=== PATIENT | male | born 1975 | race Two or more races ===

== ENCOUNTER 2025-02-15 11:03 | Inpatient (IN) | payer MEDICAID, OTHER ==
[~2025-02-15] VITALS: Ht 157.5 cm; Wt 104.5 kg
--- NOTE | 2025-02-15 11:41 | ED.PDOC ---
GI ASSESSMENT HPI Comments 49y M who presents to the ED for chief complaint of abdominal pain. Pt states he has been having LLQ abdominal pain for the past 2 hours. Pt states he drank water earlier this AM and states he had 1x vomiting episode and states he started to have burning like LLQ abdominal pain. Pt states the pain is constant, non-radiating, with no noted exacerbating or relieving factors. Pt otherwise denies any changes to diet or sick contacts. Pt denies any other symptoms at this time. Time Seen by MD: 11:37 Primary Care Provider: UNKNOWN Reviewed Notes: Medications, Allergies Allergies: Coded Allergies: NO KNOWN ALLERGIES (Unverified , 02/15/25) Information Source: Patient Mode of Arrival: Ambulatory Brought in by: self Past Medical History PAST MEDICAL HISTORY: Denies Surgical History: Denies all surgeries Family History Family History: Reviewed,noncontributory to illness Social History Smoker: Non-Smoker Alcohol: Occasionally Drugs: Denies Drug Use Lives In: Home Constitutional: denies: chills, diaphoresis, fatigue, fever, malaise, sweats, weakness, others EENTM: denies: blurred vision, double vision, ear bleeding, ear discharge, ear drainage, ear pain, ear ringing, eye pain, eye redness, hearing loss, mouth pain, mouth swelling, nasal discharge, nose bleeding, nose congestion, nose pain, photophobia, tearing, throat pain, throat swelling, voice changes, others Respiratory: denies: cough, hemoptysis, orthopnea, SOB at rest, shortness of breath, SOB with excertion, stridor, wheezing, others Cardiovascular: denies: chest pain, dizzy spells, diaphoresis, Dyspnea on exertion, edema, irregular heart beat, left arm pain, lightheadedness, palpitations, PND, syncope, others Gastrointestinal: reports: abdominal pain, nausea, vomiting; denies: abdomen distended, blood streaked bowels, constipated, diarrhea, dysphagia, difficulty swallowing, hematemesis, melena, poor appetite, poor fluid intake, rectal bleeding, rectal pain, others Genitourinary: denies: burning, dysuria, flank pain, frequency, hematuria, incontinence, penile discharge, penile sore, pain, testicle pain, testicle swelling, urgency, others Neurological: denies: dizziness, fainting, headache, left sided numbness, left sided weakness, numbness, paresthesia, pre-existing deficit, right sided numbness, right sided weakness, seizure, speech problems, tingling, tremors, weakness, others Musculoskeletal: denies: back pain, gout, joint pain, joint swelling, muscle pain, muscle stiffness, neck pain, others Integumetry: denies: bruises, change in color, change in hair/nails, dryness, laceration, lesions, lumps, rash, wounds, others Allergic/Immunocompromised: denies: Difficulty Healing, Frequent Infections, Hives, Itching, others Hematologic/Lymphatic: denies: anemia, blood clots, easy bleeding, easy bruising, swollen glands, others Endocrine: denies: excessive hunger, excessive sweating, excessive thirst, excessive urination, flushing, intolerance to cold, intolerance to heat, unex plained weight gain, unexplained weight loss, others Psychiatric: denies: anxiety, bipolar disorder, depression, hopeless, panic disorder, schizophrenia, sleepless, suicidal, others All Other Systems: Reviewed and Negative Physical Exam General Appearance: Moderate Distress, Normal HEENT: Normal ENT Inspection, Pharynx Normal, TMs Normal Neck: Full Range of Motion, Non-Tender, Normal, Normal Inspection Respiratory: Chest Non-Tender, Lungs Clear, No Accessory Muscle Use, No Respiratory Distress, Normal Breath Sounds Cardiovascular: No Edema, No JVD, No Murmur, No Gallop, Normal Peripheral Pulses, Regular Rate/Rhythm Breast Exam: Deferred Gastrointestinal: LLQ (tender to palpation) Genitalia: Deferred Pelvic: Deferred Rectal: Deferred Extremities: No calf tenderness, Normal capillary refill, Normal inspection, Normal range of motion, Non-tender, No pedal edema Musculoskeletal : Apperance: Normal Neurologic: Alert, 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 Was a procedure done?: No GI differential Dx Differential Diagnosis: Constipation, Diverticular disease, Esophagitis, Gastritis/PUD, Gastroenteritis, Pancreatitis, Dehydration, Food Poisoning, Bacterial, Viral, Stress Ulcer, Kidney Stone X-Ray, Labs, Meds, VS Vital Signs Date Time Temp Pulse Resp B/P (MAP) Pulse Ox O2 Delivery O2 Flow Rate FiO2 02/15/25 12:42 98.4 106 16 105/77 (86) 94 98.4 02/15/25 12:42 57 17 98 Room Air 02/15/25 11:12 97.5 46 16 119/72 (88) 99 97.5 Lab Test 02/15/25 12:05 Range/Units White Blood Count 10.6 4.4-10.8 10^3/uL Red Blood Count 5.09 4.5-5.90 10^6/uL Hemoglobin 15.7 13.5-17.5 g/dL Hematocrit 45.6 41.0-53.0 % Mean Corpuscular Volume 89.5 80.0-100.0 fL Mean Corpuscular Hemoglobin 30.9 28.0-32.0 pg Mean Corpuscular Hemoglobin Concent 34.6 32.0-36.0 g/dL Red Cell Distribution Width 12.7 11.8-14.3 % Platelet Count 298 140-450 10^3/uL Mean Platelet Volume 8.1 6.9-10.8 fL Neutrophils (%) (Auto) 88.2 H 37.0-80.0 % Lymphocytes (%) (Auto) 7.9 L 10.0-50.0 % Monocytes (%) (Auto) 3.8 0.0-12.0 % Eosinophils (%) (Auto) 0.0 0.0-7.0 % Basophils (%) (Auto) 0.1 0.0-2.0 % Neutrophils # (Auto) 9.3 H 1.6-8.6 10 ^3/uL Lymphocytes # (Auto) 0.8 0.4-5.4 10 ^3/uL Monocytes # (Auto) 0.4 0-1.3 10 ^3/uL Eosinophils # (Auto) 0 0-0.8 10 ^3/uL Basophils # (Auto) 0 0-0.2 10 ^3/uL Nucleated Red Blood Cells 0.0 % Sodium Level 141 136-145 mmol/L Potassium Level 3.8 3.5-5.1 mmol/L Chloride Level 111 H 98-107 mmol/L Carbon Dioxide Level 19 L 20-31 mmol/L Anion Gap 11 5-15 Blood Urea Nitrogen 21 9-23 mg/dL Creatinine 1.68 H 0.700-1.30 mg/dL Glomerular Filtration Rate Calc 49 >90 mL/min BUN/Creatinine Ratio 12.5 10.0-20.0 Serum Glucose 110 H 74-106 mg/dL Calcium Level 10.2 8.7-10.4 mg/dL Patient alert. Continues to have abdominal pain. Vitals stable. Saturation pristine on room air. Continues to have abdominal pain. Kidney function elevated. Possible dehydration. Establish intravenous access. Was given fluids. Was given morphine. Was given Zofran. Possible kidney stone. Explained to the patient. Continue to monitor. Time of 1ST Reevaluation: 12:05 Reevaluation 1ST: Unchanged Patient Education/Counseling: Diagnosis, Treatment Family Education/Counseling: No Family Present SEPSIS Sepsis Screen Date sepsis recognized/suspect: Feb 15, 2025 Time Sepsis recognized/suspect: 1111 Recent Procedure: No On Antibiotic Therapy: No Respiratory Rate >20: No Heart Rate >90: No Temp<36 C (96.8 F) or >38.3 C: No SBP <90 or MAP <65 mmHG: No New Acute Mental Status Change: No Is the patient on CPAP, BIPAP,: No Physician Orders Urinalysis (02/15/25 11:49) Ct Ab Pel Wo Con-No Oral Or Iv (02/15/25 13:29) Vital Signs Date Time Temp Pulse Resp B/P (MAP) Pulse Ox O2 Delivery O2 Flow Rate FiO2 02/15/25 12:42 98.4 106 16 105/77 (86) 94 98.4 02/15/25 12:42 57 17 98 Room Air 02/15/25 11:12 97.5 46 16 119/72 (88) 99 97.5 Laboratory Tests Test 02/15/25 12:05 White Blood Count 10.6 10^3/uL (4.4-10.8) Departure 1 Departure Time of Disposition: 13:42 Impression: Primary Impression: Acute abdominal pain Disposition: ADMITTED INPATIENT Admit to: Med Surg Condition: Guarded Critical Care Note Critical Care Time?: No Stability Stability form required: No Heart Score Heart Score: Heart Score Response (Comments) Value History N/A 0 EKG N/A 0 Age N/A 0 Risk Factors N/A 0 Troponin N/A 0 Total 0 I personally scribed for MARCELA EDWARDS MD ([email or web address]) on 02/15/25 at 11:41. Electronically submitted by Darshana Brothers ([email or web address]). MARCELA EDWARDS MD Feb 15, 2025 11:41
[2025-02-15 12:25] LABS: Hematocrit 45.6 % (41.0-53.0); Hemoglobin 15.7 g/dL (13.5-17.5); Mean Corpuscular Hemoglobin 30.9 pg (28.0-32.0); Mean Corpuscular Volume 89.5 fL (80.0-100.0); Nucleated Red Blood Cells % 0.0 %
[2025-02-15 12:38] LABS: Potassium 3.8 mmol/L (3.5-5.1); Sodium 141 mmol/L (136-145)
[2025-02-15 12:39] LABS: Anion Gap 11 (5-15); Calcium 10.2 mg/dL (8.7-10.4)
[2025-02-15 12:41] LABS: Chloride 111 mmol/L (98-107)
[2025-02-15 12:42] LABS: Carbon Dioxide 19 mmol/L (20-31)
[2025-02-15 12:44] LABS: Glucose 110 mg/dL (74-106)
[2025-02-15 13:03] LABS: BUN/Creatinine Ratio 12.5 (10.0-20.0); Blood Urea Nitrogen 21 mg/dL (9-23)
--- NOTE | 2025-02-15 14:36 | DVH ---
CT CT AB PEL WO CON-NO ORAL OR IV INDICATION: colitis EXAM DATE: 02/15/2025 02:01 PM COMPARISON: None RADIATION DOSE: CTDIvol: 20.5 mGy, DLP: 1289.07 mGy*cm PROCEDURE: Helical CT images were obtained of the abdomen and pelvis without IV contrast Sagittal and coronal reconstructions are provided. ORAL CONTRAST: None. ADDITIONAL IMAGES / REFORMATS: None All C T scans at this medical facility are performed using dose modulation techniques as appropriate to a p erformed exam including the following: Automated exposure control was utilized; adjustment of the MA and/or KV according to patient size; and use of iterative reconstruction technique. FINDINGS: LUNG BASE: Normal. LIVER: Normal. GALLBLADDER AND BILIARY TREE: Mild pericholecystic fat stranding, nonspecific. No intra- or extrahepa tic biliary ductal dilation. PANCREAS: Normal. SPLEEN: Normal. BOWEL: Normal. Appendix appears normal. ADRENALS: Normal. KIDNEYS AND URETER: There is a 6mm distal left ureteral kidney stone with [id number] left hydro ureteronephrosis and perinephric fat stranding. BLADDER: Normal. REPRODUCTIVE ORGANS: Normal. LYMPH NODES:No lymphadenopathy. PERITONEUM: No ascites or free air. No other fluid collection. VESSELS: Scattered atherosclerotic calcifications are noted. RETROPERITONEUM: Normal. ABDOMINAL WALL: Normal. BONES: Scattered osseous degenerative changes are noted. IMPRESSION: 6mm distal left ureteral kidney stone with [id number] left hydroureteronephrosis and perinephri c fat stranding.
[2025-02-15 15:50] LABS: Urine Protein, UAD TRACE (Negative)
[2025-02-15] MEDS ORDERED: ONDANSETRON HCL 4 MG/2 ML VIAL IV PRN (16:15)
[2025-02-15] MEDS ORDERED: TOPI50TA53 PO (16:17)
--- NOTE | 2025-02-15 16:32 | DVHHP2 ---
History of Present Illness Reason for Visit: Abdominal pain History of Present Illness 49-year-old male presents to the emergency department with complaints of abdominal pain. He reports acute onset of left lower quadrant abdominal pain radiating to the left flank, beginning early this morning. The pain is sharp and persistent and is associated with nausea and vomiting. The patient has a history of nephrolithiasis several years ago. In the ED, a CT scan of abdomen and pelvis revealed a 6 mm left ureteral stone with mild to moderate left sided hydronephrosis and associated periphrenic fat stranding, consistent with obstructive uropathy. He also has a history of seizures and is currently taking topiramate. Past Medical History As stated in HPI Past Surgical History Denies Family History Reviewed, non-contributory to the management of this case. Past Social History The patient lives at home, denies smoking, alcohol or illicit drugs abuse. Review of Systems Constitutional: No: Fever, Chills, Sweats, Weakness, Malaise, Other Eyes: No: Pain, Vision change, Conjunctivae inflammation, Eyelid inflammation, Other, Redness ENT: No: Ear pain, Ear discharge, Nose pain, Nose discharge, Nose congestion, Mouth pain, Mouth swelling, Throat pain, Throat swelling, Other Respiratory: No: Cough, Dry, Shortness of breath, SOB with excertion, Wheezing, Hemoptysis, Pleuritic Pain, Sputum, Wheezing, Other Cardiovascular: No: Chest Pain, Palpitations, Orthopnea, Paroxysmal Noc. Dyspnea, Edema, Lt Headedness, Other Gastrointestinal: Nausea, Vomiting, Abdominal Pain, Other (Positive for abdominal pain, nausea, and vomiting); No: Diarrhea, Constipation, Melena, Hematochezia Genitourinary: No Dysuria, No Frequency, No Incontinence, No Hematuria, No Retention; Other (Positive for flank pain. Denies dysuria or hematuria) Musculoskeletal: No: other, neck pain, shoulder pain, arm pain, back pain, hand pain, leg pain, foot pain Skin: No: Rash, Lesions, Jaundice, Bruising, Other Neurological: No: Weakness, Numbness, Incoordination, Change in speech, Confusion, Seizures, Other Allergies: Coded Allergies: NO KNOWN ALLERGIES (Unverified , 02/15/25) Medications Current Medications Medications Dose Ordered Sig/Bakari Route Start Time Stop Time Status Last Admin Dose Admin Sodium Chloride 1,000 ml @ 100 mls/hr Q10H IV 6/29/25 16:15 UNV Acetaminophen/ Hydrocodone Bitart 1 tab Q4HP PRN PO 02/15/25 16:15 UNV Ondansetron HCl 4 mg Q4HP PRN IV 02/15/25 16:15 UNV Acetaminophen 650 mg Q6HP PRN PO 02/15/25 16:15 UNV Morphine Sulfate 2 mg Q4HPRN PRN IV 02/15/25 16:15 UNV Enoxaparin Sodium 40 mg DAILY SC 02/15/25 16:15 UNV Tamsulosin HCl 0.4 mg QPM PO 02/15/25 18:00 UNV Exam Vital Signs Vital Signs Date Time Temp Pulse Resp B/P (MAP) Pulse Ox O2 Delivery O2 Flow Rate FiO2 02/15/25 14:50 98.8 78 17 141/88 (105) 97 98.8 02/15/25 12:42 Room Air General Appearance: Alert, Oriented X3, Cooperative, moderate distress HEENT: Atraumatic, PERRLA, EOMI, Mucous membr. moist/pink Respiratory: Clear to auscultation, Normal air movement Cardiovascular: Regular rate, Normal S1, Normal S2 Abdominal: Normal bowel sounds, Soft, Other (Left lower quadrant and left flank tenderness, no rebound or guarding, no palpable masses. Left CVA tenderness.) Extremities: No clubbing, No cyanosis, No edema Skin: No rashes, No breakdown, No significant lesion Neuro: Normal gait, Normal speech, Strength at 5/5 X4 ext, Normal tone Psych/Mental Status: Mental status NL Labs/Xrays Labs Test 02/15/25 15:24 02/15/25 12:05 Range/Units Urine Color Yellow Yellow Urine Clarity Clear Clear Urine pH 6.0 5.0-9.0 Urine Specific [place] 1.035 1.001-1.035 Urine Protein Trace H Negative Urine Ketones 1+ H Negative Urine Blood Negative Negative /uL Urine Nitrite Negative Negative Urine Bilirubin Negative Negative Urine Urobilinogen Normal Negative mg/dL Urine Leukocyte Esterase Negative Negative /uL Urine RBC 9 0 - 3 /hpf Urine Microscopic WBC 3 0-3 /HPF Urine Squamous Epithelial Cells Few <5 /hpf Urine Bacteria None seen None Seen /hpf Urine Mucus Few None Seen Urine Glucose Normal Normal mg/dL White Blood Count 10.6 4.4-10.8 10^3/uL Red Blood Count 5.09 4.5-5.90 10^6/uL Hemoglobin 15.7 13.5-17.5 g/dL Hematocrit 45.6 41.0-53.0 % Mean Corpuscular Volume 89.5 80.0-100.0 fL Mean Corpuscular Hemoglobin 30.9 28.0-32.0 pg Mean Corpuscular Hemoglobin Concent 34.6 32.0-36.0 g/dL Red Cell Distribution Width 12.7 11.8-14.3 % Platelet Count 298 140-450 10^3/uL Mean Platelet Volume 8.1 6.9-10.8 fL Neutrophils (%) (Auto) 88.2 H 37.0-80.0 % Lymphocytes (%) (Auto) 7.9 L 10.0-50.0 % Monocytes (%) (Auto) 3.8 0.0-12.0 % Eosinophils (%) (Auto) 0.0 0.0-7.0 % Basophils (%) (Auto) 0.1 0.0-2.0 % Neutrophils # (Auto) 9.3 H 1.6-8.6 10 ^3/uL Lymphocytes # (Auto) 0.8 0.4-5.4 10 ^3/uL Monocytes # (Auto) 0.4 0-1.3 10 ^3/uL Eosinophils # (Auto) 0 0-0.8 10 ^3/uL Basophils # (Auto) 0 0-0.2 10 ^3/uL Nucleated Red Blood Cells 0.0 % Sodium Level 141 136-145 mmol/L Potassium Level 3.8 3.5-5.1 mmol/L Chloride Level 111 H 98-107 mmol/L Carbon Dioxide Level 19 L 20-31 mmol/L Anion Gap 11 5-15 Blood Urea Nitrogen 21 9-23 mg/dL Creatinine 1.68 H 0.700-1.30 mg/dL Glomerular Filtration Rate Calc 49 >90 mL/min BUN/Creatinine Ratio 12.5 10.0-20.0 Serum Glucose 110 H 74-106 mg/dL Calcium Level 10.2 8.7-10.4 mg/dL PROCEDURE(s): ABPL - CT AB PEL WO CON-NO ORAL OR IV REASON: colitis ORDER NUMBER(s): [id number], ACCESSION NUMBER(s): [id number] CT CT AB PEL WO CON-NO ORAL OR IV INDICATION: colitis EXAM DATE: 02/15/2025 02:01 PM COMPARISON: None RADIATION DOSE: CTDIvol: 20.5 mGy, DLP: 1289.07 mGy*cm PROCEDURE: Helical CT images were obtained of the abdomen and pelvis without IV contrast Sagittal and coronal reconstructions are provided. ORAL CONTRAST: None. ADDITIONAL IMAGES / REFORMATS: None All CT scans at this medical facility are performed using dose modulation techniques as appropriate to a performed exam including the following: Automated exposure control was utilized; adjustment of the MA and/or KV according to patient size; and use of iterative reconstruction technique. FINDINGS: LUNG BASE: Normal. LIVER: Normal. GALLBLADDER AND BILIARY TREE: Mild pericholecystic fat stranding, nonspecific. No intra- or extrahepatic biliary ductal dilation. PANCREAS: Normal. SPLEEN: Normal. BOWEL: Normal. Appendix appears normal. ADRENALS: Normal. KIDNEYS AND URETER: There is a 6mm distal left ureteral kidney stone with [id number] left hydroureteronephrosis and perinephric fat stranding. BLADDER: Normal. REPRODUCTIVE ORGANS: Normal. LYMPH NODES:No lymphadenopathy. PERITONEUM: No ascites or free air. No other fluid collection. VESSELS: Scattered atherosclerotic calcifications are noted. RETROPERITONEUM: Normal. ABDOMINAL WALL: Normal. BONES: Scattered osseous degenerative changes are noted. IMPRESSION: 6mm distal left ureteral kidney stone with [id number] left hydroureteron ephrosis and perinephric fat stranding. Assessment/Plan Assessment/Plan # Left flank pain likely due obstructing uropathy # 6mm distal left ureteral kidney stone with [id number] left hydroureteronephrosis and perinephric fat stranding # MAURA like due to above # nausea and vomiting # hx of nephrolithiasis Admit to med-surg unit Pain control Tamsulosin Urology consult Rosas catheter IV fluid Antiemetics Monitor kidney functions # hx of seizures Continue topiramate. Educate patient on impact of topiramate, which is known to increase the risk of kidney stones Seizure precautions # obesity Lifestyle modification counseled with diet, regular exercise, weight loss DVT prophylaxis Medical plan discussed with patient Plan discussed with: Patient My Orders Orders - HEIKE DRIVER [employer] Procedure Category Date Status Time Admit ADMIT 02/15/25 Transmitted 16:11 Code Status CODE 02/15/25 Transmitted 16:11 Sodium Chloride 0.9% PHA 02/15/25 Logged 16:15 Hydrocodone-Acet PHA 02/15/25 Logged 5/325mg Tab ([place] 16:15 Ondansetron Hcl PHA 02/15/25 Logged (Zofran) 16:15 Complete Blood Count LAB 02/16/25 Verified 04:00 Comprehensive LAB 02/16/25 Verified Metabolic Panel 04:00 Cardiac DIET 02/15/25 Transmitted Diet-2gna,Lofat,Lochol Dinner Condition: Fair [facility] 02/15/25 Transmitted 16:11 Acetaminophen Tablet PHA 02/15/25 Logged (Tylenol Tablet) 16:15 Morphine Sulfate PHA 02/15/25 Logged Injection 16:15 Enoxaparin Sodium PHA 02/15/25 Logged (Lovenox) 16:15 Hydromorphone PHA 02/15/25 Logged Injection (Dilaudid 16:15 Ondansetron Hcl PHA 02/15/25 Logged (Zofran) 16:15 Tamsulosin PHA 02/15/25 Logged Hydrochloride (Flomax) 18:00 Tamsulosin PHA 02/15/25 Logged Hydrochloride (Flomax) 16:15 * Urology Consult CONS 02/15/25 Transmitted 16:11 Strain All Urine For EMRE 02/15/25 Transmitted Stones 16:11 Insert Rosas Catheter [facility] 02/15/25 Transmitted 16:11 Date of Service: Feb 15, 2025 Billing Provider: HEIKE DRIVER Common Visit Codes: [id number] INP/OBS CARE (HIGH) HEIKE DRIVER Feb 15, 2025 16:32
[2025-02-15] MEDS: ONDANSETRON HCL 4 MG/2 ML VIAL IV ONE (17:05)
[2025-02-15] MEDS: HYDROmorphone HCL 2 MG/ML VL/or syr IV ONE (17:05)
[2025-02-15] MEDS: ENOXAPARIN SOD 40 MG/0.4 ML SYRINGE SC SCH (17:37)
[2025-02-15] MEDS: TAMSULOSIN HYDROCHLORIDE 0.4 MG CAP PO ONE (17:37)
[2025-02-15] MEDS: SODIUM CHLORIDE 0.9% 1,000 ML IV SCH (18:00)
[2025-02-15] MEDS: HYDROcodone-ACET 5/325MG TAB PO PRN (21:47)
[2025-02-15] MEDS: TOPIRAMATE 25 MG TAB PO SCH (22:24)
[2025-02-15 23:59] VITALS: BP 111/72; PULSE 54; RESP 17; TEMP 98.4; O2SAT 99
[2025-02-16] VITALS (7 sets, daily range): BP systolic 97–114; BP diastolic 57–78; PULSE 54–64; RESP 14–18; TEMP 98.3–98.9; O2SAT 95–99
[2025-02-16 06:47] LABS: Hematocrit 40.5 % (41.0-53.0); Hemoglobin 14.2 g/dL (13.5-17.5); Mean Corpuscular Hemoglobin 30.9 pg (28.0-32.0); Mean Corpuscular Volume 88.2 fL (80.0-100.0); Nucleated Red Blood Cells % 0.1 %
[2025-02-16 07:02] LABS: Alanine Aminotransferase 23 U/L (7-40); Albumin 3.9 g/dL (3.2-4.8); Alkaline Phosphatase 54 U/L (46-116); Anion Gap 9 (5-15); BUN/Creatinine Ratio 12.5 (10.0-20.0); Calcium 9.5 mg/dL (8.7-10.4); Glucose 100 mg/dL (74-106); Potassium 3.8 mmol/L (3.5-5.1); Sodium 141 mmol/L (136-145); Total Protein 6.0 g/dL (5.7-8.2)
[2025-02-16 07:03] LABS: Bilirubin, Total 1.0 mg/dL (0.2-1.0)
[2025-02-16 07:15] LABS: Blood Urea Nitrogen 23 mg/dL (9-23); Carbon Dioxide 20 mmol/L (20-31); Chloride 112 mmol/L (98-107)
[2025-02-16 11:12] LABS: Magnesium 1.8 mg/dL (1.6-2.6)
--- NOTE | 2025-02-16 11:18 | DVHINCON2 ---
Date of service: Feb 16, 2025 Referring Physician Hospitalist Reason for Consultation kidney stone History of Present Illness History Source: Patient, RN Notes Exam Limitations: No limitations HPI 49-year-old male presents to the emergency department with complaints of abdominal pain. He reports acute onset of left lower quadrant abdominal pain radiating to the left flank, beginning early this morning. The pain is sharp and persistent and is associated with nausea and vomiting. The patient has a history of nephrolithiasis several years ago. In the ED, a CT scan of abdomen and pelvis revealed a 6 mm left ureteral stone with mild to moderate left sided hydronephrosis and associated periphrenic fat stranding, consistent with obstructive uropathy. He also has a history of seizures and is currently taking topiramate. Home Meds Reported Medications Topiramate (Topiramate) 50 Mg Tab, 1 TAB PO BID 02/15/25 Past Medical History Patient Family History: Diabetes mellitus G8 MOTHER Review of Systems Gastrointestinal: Nausea, Abdominal Pain Genitourinary: Dysuria, Pain H&P Exam Vital Signs Vital Signs Date Time Temp Pulse Resp B/P (MAP) Pulse Ox O2 Delivery O2 Flow Rate FiO2 02/16/25 09:30 98.3 57 14 110/70 (83) 98 98.3 02/16/25 08:00 Room Air* 0 21 General Appeara: Well developed, Well nourished, Normal Appearance, Obese Neuro/Mental St: Alert, Oriented Appearance: Appropriate appearance, Appropriate insight Eye contact/ Speech: Cooperative, Good eye contact, Normal speech Skin Exam: Normal inspection, Normal color, Warm/dry Labs/Xrays [place] [id number] Ph: [phone] DIAGNOSTIC IMAGING Diagnostic Imaging Report : [id number] Signed PATIENT: VIRGINIA MONTEMAYORACCT: [id number] UNIT: [id number] : 1975 LOC: ER ROOM / BED: / AGE / SEX: 49 / M ADM STATUS: REG ER SERVICE 1329 ORDERING PHYSICIAN: MARCELA EDWARDS MD PROCEDURE(s): ABPL - CT AB PEL WO CON-NO ORAL OR IV REASON: colitis ORDER NUMBER(s): [id number], ACCESSION NUMBER(s): [id number] CT CT AB PEL WO CON-NO ORAL OR IV INDICATION: colitis EXAM DATE: 02/15/2025 02:01 PM COMPARISON: None RADIATION DOSE: CTDIvol: 20.5 mGy, DLP: 1289.07 mGy*cm PROCEDURE: Helical CT images were obtained of the abdomen and pelvis without IV contrast Sagittal and coronal reconstructions are provided. ORAL CONTRAST: None. ADDITIONAL IMAGES / REFORMATS: None All CT scans at this medical facility are performed using dose modulation techniques as appropriate to a performed exam including the following: Automated exposure control was utilized; adjustment of the MA and/or KV according to patient size; and use of iterative reconstruction technique. FINDINGS: LUNG BASE: Normal. LIVER: Normal. GALLBLADDER AND BILIARY TREE: Mild pericholecystic fat stranding, nonspecific. No intra- or extrahepatic biliary ductal dilation. PANCREAS: Normal. SPLEEN: Normal. BOWEL: Normal. Appendix appears normal. ADRENALS: Normal. KIDNEYS AND URETER: There is a 6mm distal left ureteral kidney stone with [id number] left hydroureteronephrosis and perinephric fat stranding. BLADDER: Normal. REPRODUCTIVE ORGANS: Normal. LYMPH NODES:No lymphadenopathy. PERITONEUM: No ascites or free air. No other fluid collection. VESSELS: Scattered atherosclerotic calcifications are noted. RETROPERITONEUM: Normal. ABDOMINAL WALL: Normal. BONES: Scattered osseous degenerative changes are noted. IMPRESSION: 6mm distal left ureteral kidney stone with [id number] left hydroureteronephrosis and perinephric fat stranding. ATED BY: TUCKER SAHU MD DICTATED DATE/TIME: 02/15/251433 SIGNED BY: TUCKER SAHU MD SIGNED DATE/TIME: 02/15/251433 CC: Labs Test 02/16/25 05:46 02/15/25 15:24 Range/Units White Blood Count 8.9 4.4-10.8 10^3/uL Red Blood Count 4.59 4.5-5.90 10^6/uL Hemoglobin 14.2 13.5-17.5 g/dL Hematocrit 40.5 #L 41.0-53.0 % Mean Corpuscular Volume 88.2 80.0-100.0 fL Mean Corpuscular Hemoglobin 30.9 28.0-32.0 pg Mean Corpuscular Hemoglobin Concent 35.1 32.0-36.0 g/dL Red Cell Distribution Width 13.2 11.8-14.3 % Platelet Count 269 140-450 10^3/uL Mean Platelet Volume 8.2 6.9-10.8 fL Neutrophils (%) (Auto) 72.3 37.0-80.0 % Lymphocytes (%) (Auto) 17.1 10.0-50.0 % Monocytes (%) (Auto) 10.2 0.0-12.0 % Eosinophils (%) (Auto) 0.2 0.0-7.0 % Basophils (%) (Auto) 0.2 0.0-2.0 % Neutrophils # (Auto) 6.5 1.6-8.6 10 ^3/uL Lymphocytes # (Auto) 1.5 0.4-5.4 10 ^3/uL Monocytes # (Auto) 0.9 0-1.3 10 ^3/uL Eosinophils # (Auto) 0 0-0.8 10 ^3/uL Basophils # (Auto) 0 0-0.2 10 ^3/uL Nucleated Red Blood Cells 0.1 % Sodium Level 141 136-145 mmol/L Potassium Level 3.8 3.5-5.1 mmol/L Chloride Level 112 H 98-107 mmol/L Carbon Dioxide Level 20 20-31 mmol/L Anion Gap 9 5-15 Blood Urea Nitrogen 23 9-23 mg/dL Creatinine 1.84 H 0.700-1.30 mg/dL Glomerular Filtration Rate Calc 44 >90 mL/min BUN/Creatinine Ratio 12.5 10.0-20.0 Serum Glucose 100 74-106 mg/dL Calcium Level 9.5 8.7-10.4 mg/dL Total Bilirubin 1.0 0.2-1.0 mg/dL Aspartate Amino Transferase (AST) 21 <34 U/L Alanine Aminotransferase (ALT) 23 7-40 U/L Alkaline Phosphatase 54 46-116 U/L Total Protein 6.0 5.7-8.2 g/dL Albumin 3.9 3.2-4.8 g/dL Urine Color Yellow Yellow Urine Clarity Clear Clear Urine pH 6.0 5.0-9.0 Urine Specific [place] 1.035 1.001-1.035 Urine Protein Trace H Negative Urine Ketones 1+ H Negative Urine Blood Negative Negative /uL Urine Nitrite Negative Negative Urine Bilirubin Negative Negative Urine Urobilinogen Normal Negative mg/dL Urine Leukocyte Esterase Negative Negative /uL Urine RBC 9 0 - 3 /hpf Urine Microscopic WBC 3 0-3 /HPF Urine Squamous Epithelial Cells Few <5 /hpf Urine Bacteria None seen None Seen /hpf Urine Mucus Few None Seen Urine Glucose Normal Normal mg/dL Assessment/Plan Problem List: (1) Acute abdominal pain Plan expulsive measures NPO after midnight ESWL with left ureteral stent placement TBA tomorrow Plan discussed with: Patient, Other ADRIANNA SOMMER COURIER DELIVERY DRIVER Feb 16, 2025 11:18
[2025-02-16 12:51] LABS: INR 1.04 (0.9-1.15); Partial Thromboplastin Time 30.5 SEC (24.5-34.5); Prothrombin Time 11.0 sec (9.3-11.8)
[2025-02-16 12:57] LABS: Amphetamine Screen, Urine Neg (NEGATIVE); Barbiturate Scree,Urine Neg (NEGATIVE); Benzodiazephine Screen, Urine Neg (NEGATIVE); Cannabinoid Screen, Urine Neg (NEGATIVE); Cocaine Screen, Urine Neg (NEGATIVE); Opiate Scree,Urine Neg (NEGATIVE); Phencyclidine Screen, Urine Neg (NEGATIVE)
[2025-02-16] MEDS: cefTRIAXone 1GM/50ML D5W 50 ML IV ONE (13:22)
[2025-02-16] MEDS: CYANOCOBALAMIN (B-12) 1000 MCG/1 ML VIAL IM ONE (13:23)
--- NOTE | 2025-02-16 14:37 | DVHPNRES ---
Progress Note Date Seen: Feb 16, 2025 Resident Creating Document: KURT THURMAN RESIDENT Medical Necessity Reason Pt with a Central, PICC or Fol: Yes The following are medically ne: Rosas Catheter Subjective Review of Systems Mr. Luis Escamilla 49-year-old male with past medical history of Nephrolithiasis and seizure disorder status post temporal surgery came to the emergency department yesterday morning with chief complaint of abdominal pain since day prior to admission. The patient reports that the pain started suddenly in the left flank was intermittent, 10/10 intensity that radiated to the lower anterior abdomen he describes it as burning in nature. It was associated with with nausea and vomiting. No aggravating or relieving factors. Patient denies polyuria, dysuria, diarrhea, constipation, fever. patient reports having a kidney stone 5 years ago that without any intervention he passed himself. PMH: Nephrolithiasis and seizure disorder status post temporal surgery PSH: Temporal brain surgery for seizure disorder in 2009 Family history: reviewed, noncontributory Social history: Patient lives at home with family. Denies smoking, drinking alcohol, and any other drug abuse Allergies: Dust Home medications: Topiramate for the past 15 years Review of system: patient seen and examined at bedside. Overnight events reviewed, no new complaints reported except pain in the left flank which has improved since admission nausea and vomiting has improved as well. Rest of the ROS is negative. Patient reports: No new complaints, Feels better Objective vital signs Vital Sign Date Time Temp Pulse Resp B/P (MAP) Pulse Ox O2 Delivery O2 Flow Rate FiO2 02/16/25 13:19 98.3 59 17 114/67 (83) 97 98.3 02/16/25 08:00 Room Air* 0 21 Total Intake and Output 02/15/25 02/15/25 02/16/25 15:00 23:00 07:00 Intake Total 240 ml Balance 240 ml medications Current Medications Medications Dose Ordered Sig/Bakari Route Start Time Stop Time Status Last Admin Dose Admin Sodium Chloride 1,000 ml @ 100 mls/hr Q10H IV 02/15/25 16:15 02/16/25 10:41 100 MLS/HR Acetaminophen/ Hydrocodone Bitart 1 tab Q4HP PRN PO 02/15/25 16:15 02/16/25 04:49 1 TAB Ondansetron HCl 4 mg Q4HP PRN IV 02/15/25 16:15 Acetaminophen 650 mg Q6HP PRN PO 02/15/25 16:15 Morphine Sulfate 2 mg Q4HPRN PRN IV 02/15/25 16:15 Tamsulosin HCl 0.4 mg QPM PO 02/16/25 18:00 Topiramate 50 mg BID PO 02/15/25 22:00 02/16/25 10:38 50 MG Ceftriaxone Sodium 50 ml @ 100 mls/hr DAILY@09 IV 02/17/25 09:00 Examination Pt is lying on bed General Appearance: Alert, Oriented X3, Cooperative, Mild distress HEENT: Atraumatic, Mucous membranes moist/pink Respiratory: Clear to auscultation, Normal air movement, No added sounds Cardiovascular: Regular rate, Normal S1, Normal S2, No murmurs Abdominal/ : Active bowel sounds, Soft, no distention, But left flank tenderness Extremities: No edema, Normal pulses, No tenderness/swelling Skin: No Significant rash, except past surgical scars Neuro: Normal speech, sensorimotor deficits none. peripheral vision is lost after sx Psych/Mental Status: Mental status NL, Mood NL Nurse was there as coronary care unit nurse during examination laboratory and microbiology Laboratory Tests 02/16/25 05:46 Test 02/16/25 05:46 Range/Units Serum Glucose 100 74-106 mg/dL Labs and/or images reviewed: Labs reviewed by me, Image(s) reviewed by me Problem List/Assessment/Plan Problem List/Assessment/Plan # Left ureteral nephrolithiasis # Bncm-gt-znyvgehz left hydroureteronephrosis # Obstructive Uropathy # R/o acute pyelonephritis - IVF 100 mL/hour - Tamsulosin 0.4 mg - Rosas catheter in place - management with okay morphine sulfate, [place] - CT scan of abdomen pelvis showed 6mm distal left ureteral kidney stone with qrei-nv-mkoadebj left hydroureteronephrosis and perinephric fat stranding. - urology consult, pending - ordered ceftriaxone for possible infection - ordered urine culture, pending - dietary Counseling regarding low-salt diet, food low in protein - encourage oral hydration # MAURA Likely due to VMN/ Obstructive uropathy - monitor labs - IVF # mild B12 deficiency - repleting with 1000 mcg IM injection once GI prophylaxis: not indicated DVT prophylaxis: Lovenox 40 mg subcutaneous daily Diet: cardiac diet( consider NPO after midnight if Urology is considering surgery ) Goals of care discussed with the patient for more than 27 minutes: Full code status Case discussed with Dr. Langley, patient and RN Plan discussed with: Patient, Other (Mother and RN) My Orders My Orders Orders - KURT THURMAN Procedure Category Date Status Time Ceftriaxone 1gm/50ml PHA 02/17/25 In Process D5w (Rocephin) 09:00 Urine Bacterial REINIER 02/16/25 In Process Culture 11:53 Date of Service: Feb 16, 2025 Billing Provider: AMERICA LANGLEY MD Common Visit Codes: [id number] INP/OBS CARE(HIGH) KURT THURMAN Feb 16, 2025 14:37 AMERICA LANGLEY MD Feb 16, 2025 21:43
[2025-02-16] MEDS: MAGNESIUM SULFATE 1GM/100ML 100 ML IV ONE (15:03)
[2025-02-16] MEDS: MANNITOL FTV 25% 12.5 GM/50 ML 50 ML IV ONE (15:03)
[2025-02-16] MEDS: TAMSULOSIN HYDROCHLORIDE 0.4 MG CAP PO SCH (17:13)
[2025-02-16] MEDS: MORPHINE SULFATE INJ 2 MG/ml SYRG IV PRN (21:45)
[2025-02-17] VITALS (7 sets, daily range): BP systolic 109–125; BP diastolic 71–75; PULSE 57–63; RESP 13–18; TEMP 98.1–98.8; O2SAT 93–97
--- NOTE | 2025-02-17 06:30 | DVH ---
CHEST RADIOGRAPH Indication: protocol for procedure Technique: Single frontal view of the chest was obtained COMPARISON: None FINDINGS: Lines and Tubes: None Lungs: Mild left basilar atelectasis. No evidence of focal consolidation. Pleura: No effusion. No pneumothorax. Cardiomediastinal contours: Unremarkable Bones: Unremarkable IMPRESSION: 1. No acute disease.
[2025-02-17 06:41] LABS: Potassium 4.1 mmol/L (3.5-5.1); Sodium 141 mmol/L (136-145)
[2025-02-17 06:43] LABS: Calcium 8.7 mg/dL (8.7-10.4)
[2025-02-17 06:47] LABS: BUN/Creatinine Ratio 18.1 (10.0-20.0); Glucose 89 mg/dL (74-106)
[2025-02-17 06:56] LABS: Blood Urea Nitrogen 25 mg/dL (9-23); Chloride 113 mmol/L (98-107)
[2025-02-17 06:59] LABS: Anion Gap 9 (5-15); Carbon Dioxide 19 mmol/L (20-31)
[2025-02-17] MEDS ORDERED: CIPROFLOXACIN 400MG/200ML 200 ML IV ONE (08:27)
[2025-02-17] MEDS: cefTRIAXone 1GM/50ML D5W 50 ML IV SCH (09:00)
[2025-02-17] MEDS ORDERED: MIDAZOLAM HCL 2MG/2ML 2ml VIAL (1mg/ml) ONE (10:36)
[2025-02-17] MEDS ORDERED: PROPOFOL 10 MG/ML 20 ML IV ONE (10:36)
[2025-02-17] MEDS ORDERED: fentaNYL CITRATE 100 MCG/2 ML VL ONE (10:36)
--- NOTE | 2025-02-17 11:17 | DVHNC2 ---
Procedure - OPERATIVE REPORT Pre-op. Diagnosis: left distal ureteral calculus, 6 mm mild left hydronephrosis Post-op. Diagnosis: Same as pre-op diagnosis Operation: Extracorporeal Shockwave Lithotripsy Anesthesia: General Indications: Patient was found to have symptomatic Urolithiasis. Patient is here to undergo ESWL therapy. Informed Consent: The procedure was explained to the patient. It's risks include but not limited to infection, bleeding, and damage to the kidney. Patient fully understood and signed the consent. Other options such as watchful waiting, Ureteroscopy, Percutaneous surgery and open surgery were also discussed. Details of Procedure: Under satisfactory anesthesia, the patient was positioned on the lithotripsy table. Using fluoroscopy the stone was localized. Starting at low energy levels, shockwave treatment was commenced. The energy level was gradually increased and stone was fragmented. Once the treatment was completed, patient was then taken off the lithotripsy table and sent to recovery room in stable condition. Specimens: None Complications: None Findings: Stone Laterality: left Stone Location: distal ureteral calculus 6 mm Shocks Delivered: 2000 Max Power settin Fragmentation Quality: Well RANDALL KLEIN MD Feb 17, 2025 11:17
[2025-02-17] MEDS ORDERED: HYDROmorphone HCL 2 MG/ML VL/or syr IV PRN (11:45)
[2025-02-17] MEDS ORDERED: ONDANSETRON HCL 4 MG/2 ML VIAL IV ONE (11:45)
[2025-02-17] MEDS ORDERED: METOCLOPRAMIDE HCL 5MG/ml INJ 2ml VIAL IV ONE (11:45)
[2025-02-17] MEDS: ATROPINE SULFATE 0.4 MG/1 ML VIAL ONE (12:30)
[2025-02-17] MEDS ORDERED: ATROPINE SULFATE 0.4 MG/1 ML VIAL IV ONE (12:30)
--- NOTE | 2025-02-17 13:09 | DVHPNRES ---
Progress Note Date Seen: Feb 17, 2025 Resident Creating Document: EVANS GARCIA RESIDENT Medical Necessity Reason Pt with a Central, PICC or Fol: Yes The following are medically ne: Rosas Catheter Subjective Review of Systems Mr. Luis Escamilla 49-year-old male with past medical history of Nephrolithiasis and seizure disorder status post temporal surgery came to the emergency department yesterday morning with chief complaint of abdominal pain since day prior to admission. The patient reports that the pain started suddenly in the left flank was intermittent, 10/10 intensity that radiated to the lower anterior abdomen he describes it as burning in nature. It was associated with with nausea and vomiting. No aggravating or relieving factors. Patient denies polyuria, dysuria, diarrhea, constipation, fever. patient reports having a kidney stone 5 years ago that without any intervention he passed himself. PMH: Nephrolithiasis and seizure disorder status post temporal surgery PSH: Temporal brain surgery for seizure disorder in 2009 Family history: reviewed, noncontributory Social history: Patient lives at home with family. Denies smoking, drinking alcohol, and any other drug abuse Allergies: Dust Home medications: Topiramate for the past 15 years 02/17- Interval events: The patient seen and examined at bedside. Patient reports having a slight headache since yesterday evening. Since admission patient reports improvement in his abdominal and flank pain since admission. Rest of the ROS is negative. Patient reports: Feels better Objective vital signs Vital Sign Date Time Temp Pulse Resp B/P (MAP) Pulse Ox O2 Delivery O2 Flow Rate FiO2 02/17/25 11:52 55 16 124/83 (97) 95 02/17/25 11:17 97.5 97.5 02/17/25 11:17 Mask 10.0 02/17/25 08:00 21 Total Intake and Output 02/16/25 02/16/25 02/17/25 15:00 23:00 07:00 Intake Total 1620 ml 800 ml Output Total 2150 ml 3300 ml Balance -530 ml -2500 ml medications Current Medications Medications Dose Ordered Sig/Bakari Route Start Time Stop Time Status Last Admin Dose Admin Sodium Chloride 1,000 ml @ 100 mls/hr Q10H IV 02/15/25 16:15 02/16/25 21:45 100 MLS/HR Acetaminophen/ Hydrocodone Bitart 1 tab Q4HP PRN PO 02/15/25 16:15 02/16/25 15:04 1 TAB Ondansetron HCl 4 mg Q4HP PRN IV 02/15/25 16:15 Acetaminophen 650 mg Q6HP PRN PO 02/15/25 16:15 Morphine Sulfate 2 mg Q4HPRN PRN IV 02/15/25 16:15 02/16/25 21:45 2 MG Tamsulosin HCl 0.4 mg QPM PO 02/16/25 18:00 02/16/25 17:13 0.4 MG Topiramate 50 mg BID PO 02/15/25 22:00 02/16/25 21:42 50 MG Ceftriaxone Sodium 50 ml @ 100 mls/hr DAILY@09 IV 02/17/25 09:00 Ephedrine Sulfate 10 mg Q10M PRN IV 02/17/25 11:45 02/17/25 12:26 UNV Hydromorphone HCl 0.5 mg Q2HP PRN IV 02/17/25 11:45 02/17/25 11:46 UNV Examination Pt is lying on bed General Appearance: Alert, Oriented X3, Cooperative, Mild distress HEENT: Atraumatic, Mucous membranes moist/pink Respiratory: Clear to auscultation, Normal air movement, No added sounds Cardiovascular: Regular rate, Normal S1, Normal S2, No murmurs Abdominal/ : Active bowel sounds, Soft, no distention, But left flank tenderness present better than yesterday Extremities: No edema, Normal pulses, No tenderness/swelling Skin: No Significant rash, except past surgical scars Neuro: Normal speech, sensorimotor deficits none. peripheral vision is lost after sx Psych/Mental Status: Mental status NL, Mood NL Nurse was there as float operator during examination laboratory and microbiology Laboratory Tests 02/17/25 06:07 02/16/25 05:46 Test 02/17/25 06:07 Range/Units Serum Glucose 89 74-106 mg/dL Microbiology Date/Time Source Procedure Growth Status 02/15/25 15:24 Voided Urine Urine Culture - Preliminary Resulted Labs and/or images reviewed: Labs reviewed by me, Image(s) reviewed by me Problem List/Assessment/Plan Problem List/Assessment/Plan # Left ureteral nephrolithiasis # Npvo-bn-yfsnsunr left hydroureteronephrosis # Obstructive Uropathy # R/o acute pyelonephritis - IVF 100 mL/hour - Tamsulosin 0.4 mg - Rosas catheter in place - management with okay morphine sulfate, [place] - CT scan of abdomen pelvis showed 6mm distal left ureteral kidney stone with tjcm-yc-iubwcbur left hydroureteronephrosis and perinephric fat stranding. - urology consult, advised ESWL - ordered ceftriaxone for possible infection - ordered urine culture, preliminary report shows < 81541 CFU/mL - dietary Counseling regarding low-salt diet, food low in protein - encourage oral hydration - Postoperative day 0 s/p Extracorporeal Shockwave Lithotripsy, patient tolerated the procedure well - Continue pain management - Start diet as tolerated # MAURA Likely due to Obstructive uropathy- improving renal function - monitor labs - IVF # mild B12 deficiency - repleting with 1000 mcg IM injection once GI prophylaxis: not indicated DVT prophylaxis: Lovenox 40 mg subcutaneous daily Diet: cardiac diet, diet as patient tolerates Goals of care discussed with the patient for more than 27 minutes: Full code status Case discussed with Dr. Langley, patient and RN Plan discussed with: Patient, Other (RN) Date of Service: Feb 17, 2025 Billing Provider: AMERICA LANGLEY MD Common Visit Codes: [id number] INP/OBS CARE(HIGH) EVANS GARCIA RESIDENT Feb 17, 2025 13:09 AMERICA LANGLEY MD Feb 17, 2025 17:49
[2025-02-17] MEDS: ACETAMINOPHEN 325 MG TAB PO PRN (15:19)
[2025-02-18 01:00] VITALS: BP 106/62; PULSE 97; RESP 19; TEMP 98.1; O2SAT 100
[2025-02-18 05:00] VITALS: BP 102/63; PULSE 61; RESP 18; TEMP 97.8; O2SAT 95
[2025-02-18 06:43] LABS: Calcium 9.0 mg/dL (8.7-10.4); Potassium 3.9 mmol/L (3.5-5.1); Sodium 142 mmol/L (136-145)
[2025-02-18 06:44] LABS: Anion Gap 9 (5-15); Carbon Dioxide 20 mmol/L (20-31)
[2025-02-18 06:49] LABS: BUN/Creatinine Ratio 15.6 (10.0-20.0); Blood Urea Nitrogen 21 mg/dL (9-23); Glucose 90 mg/dL (74-106)
[2025-02-18 06:54] LABS: Chloride 113 mmol/L (98-107)
[2025-02-18 08:00] VITALS: PULSE 67; RESP 17; O2SAT 98
[2025-02-18 08:30] VITALS: BP 112/71; PULSE 67; RESP 17; TEMP 98; O2SAT 98
[2025-02-18] MEDS ORDERED: CEFP200T15 PO (08:44)
[2025-02-18] MEDS ORDERED: TAMS-35 PO (08:44)
[2025-02-18 12:25] VITALS: BP 121/80; PULSE 57; RESP 17; TEMP 98.3; O2SAT 98
--- NOTE | 2025-02-18 16:50 | DVHDSRES ---
Discharge Summary Date of Admission Resident Creating Document: EVANS GARCIA RESIDENT Feb 15, 2025 at 16:11 Date of Discharge: Feb 18, 2025 Admitting Diagnosis Left ureteral nephrolithiasis Labs/Diagnostic Data: Laboratory Results Test 02/18/25 05:49 02/16/25 11:43 02/16/25 05:46 02/15/25 15:24 Sodium Level 142 mmol/L (136-145) Potassium Level 3.9 mmol/L (3.5-5.1) Chloride Level 113 mmol/L (98-107) Carbon Dioxide Level 20 mmol/L (20-31) Anion Gap 9 (5-15) Blood Urea Nitrogen 21 mg/dL (9-23) Creatinine 1.35 mg/dL (0.700-1.30) Glomerular Filtration Rate Calc 64 mL/min (>90) BUN/Creatinine Ratio 15.6 (10.0-20.0) Serum Glucose 90 mg/dL (74-106) Calcium Level 9.0 mg/dL (8.7-10.4) Prothrombin Time 11.0 sec (9.3-11.8) Prothrombin Time INR 1.04 (0.9-1.15) Activated Partial Thromboplast Time 30.5 SEC (24.5-34.5) White Blood Count 8.9 10^3/uL (4.4-10.8) Red Blood Count 4.59 10^6/uL (4.5-5.90) Hemoglobin 14.2 g/dL (13.5-17.5) Hematocrit 40.5 % (41.0-53.0) Mean Corpuscular Volume 88.2 fL (80.0-100.0) Mean Corpuscular Hemoglobin 30.9 pg (28.0-32.0) Mean Corpuscular Hemoglobin Concent 35.1 g/dL (32.0-36.0) Red Cell Distribution Width 13.2 % (11.8-14.3) Platelet Count 269 10^3/uL (140-450) Mean Platelet Volume 8.2 fL (6.9-10.8) Neutrophils (%) (Auto) 72.3 % (37.0-80.0) Lymphocytes (%) (Auto) 17.1 % (10.0-50.0) Monocytes (%) (Auto) 10.2 % (0.0-12.0) Eosinophils (%) (Auto) 0.2 % (0.0-7.0) Basophils (%) (Auto) 0.2 % (0.0-2.0) Neutrophils # (Auto) 6.5 10 ^3/uL (1.6-8.6) Lymphocytes # (Auto) 1.5 10 ^3/uL (0.4-5.4) Monocytes # (Auto) 0.9 10 ^3/uL (0-1.3) Eosinophils # (Auto) 0 10 ^3/uL (0-0.8) Basophils # (Auto) 0 10 ^3/uL (0-0.2) Nucleated Red Blood Cells 0.1 % Hemoglobin A1c 5.2 % A1C (<5.7) Magnesium Level 1.8 mg/dL (1.6-2.6) Total Bilirubin 1.0 mg/dL (0.2-1.0) Aspartate Amino Transferase (AST) 21 U/L (<34) Alanine Aminotransferase (ALT) 23 U/L (7-40) Alkaline Phosphatase 54 U/L (46-116) Total Protein 6.0 g/dL (5.7-8.2) Albumin 3.9 g/dL (3.2-4.8) Vitamin B12 Level 320 pg/mL (211-911) Vitamin D 25-Hydroxy 43.6 ng/mL (30.0-100) Thyroid Stimulating Hormone (TSH) 0.45 uIU/mL (0.55-4.78) Plasma/Serum Blood Alcohol < 3.0 mg/dL (<10) Urine Color Yellow (Yellow) Urine Clarity Clear (Clear) Urine pH 6.0 (5.0-9.0) Urine Specific [place] 1.035 (1.001-1.035) Urine Protein Trace (Negative) Urine Ketones 1+ (Negative) Urine Blood Negative /uL (Negative) Urine Nitrite Negative (Negative) Urine Bilirubin Negative (Negative) Urine Urobilinogen Normal mg/dL (Negative) Urine Leukocyte Esterase Negative /uL (Negative) Urine RBC 9 /hpf (0 - 3) Urine Microscopic WBC 3 /HPF (0-3) Urine Squamous Epithelial Cells Few /hpf (<5) Urine Bacteria None seen /hpf (None Seen) Urine Mucus Few (None Seen) Urine Glucose Normal mg/dL (Normal) Urine Opiates Screen Neg (NEGATIVE) Urine Fentanyl Screen Neg (NEGATIVE) Urine Barbiturates Screen Neg (NEGATIVE) Urine Phencyclidine Screen Neg (NEGATIVE) Urine Amphetamines Screen Neg (NEGATIVE) Urine Benzodiazepines Screen Neg (NEGATIVE) Urine Cocaine Screen Neg (NEGATIVE) Urine Cannabinoids Screen Neg (NEGATIVE) Other Laboratory Tests 02/18/25 05:49 02/16/25 05:46 Brief Hx & Hospital Course: Mr. Luis Escamilla 49-year-old male with past medical history of Nephrolithiasis and seizure disorder status post temporal surgery came to the emergency department yesterday morning with chief complaint of abdominal pain since day prior to admission. The patient reports that the pain started suddenly in the left flank was intermittent, 10/10 intensity that radiated to the lower anterior abdomen he describes it as burning in nature. It was associated with with nausea and vomiting. No aggravating or relieving factors. Patient denies polyuria, dysuria, diarrhea, constipation, fever. patient reports having a kidney stone 5 years ago that without any intervention he passed himself. PMH: Nephrolithiasis and seizure disorder status post temporal surgery PSH: Temporal brain surgery for seizure disorder in 2009 Family history: reviewed, noncontributory Social history: Patient lives at home with family. Denies smoking, drinking alcohol, and any other drug abuse Allergies: Dust Home medications: Topiramate for the past 15 years Brief hospital course:Patient was evaluated further for nephrolithiasis and [id number] hydronephrosis, obstructive uropathy and possible acute pyelonephritis. Patient was started on IV is, tamsulosin, Rosas's catheter was placed to relieve obstruction to relieve obstruction. pain was managed with morphine sulfate, Lyman. On CT of abdomen and pelvis a 6 mm distal left ureteral kidney stone with [id number] left hydronephrosis and elver nephric fat stranding was seen. Urology was consulted and he underwent ESWL on 17 February 2025 patient tolerated procedure well, and pain management was continued and diet started as tolerated. he was given ceftriaxone for possible infection urine culture preliminary showed <60226 cfu/mL. dietary probation counselor was given to patient regarding diet low in salt and protein. He is also encouraged oral hydration. Ibuprofen prescribed as needed for pain management. patient was found to have MAURA likely due to obstructive uropathy with improving renal function. Patient also had mild B12 deficiency which was repleted with intramuscular injection of B12. Patient's condition improved, hemodynamically stable to discharged home on medical treatment with optimal medical treatment. Was advised to follow up patient was advised to follow up with PCP and Urology after discharge. Pt is lying on bed General Appearance: Alert, Oriented X3, Cooperative, Mild distress HEENT: Atraumatic, Mucous membranes moist/pink Respiratory: Clear to auscultation, Normal air movement, No added sounds Cardiovascular: Regular rate, Normal S1, Normal S2, No murmurs Abdominal/ : Active bowel sounds, Soft, no distention, But left flank tenderness present better than yesterday Extremities: No edema, Normal pulses, No tenderness/swelling Skin: No Significant rash, except past surgical scars Neuro: Normal speech, sensorimotor deficits none. peripheral vision is lost after sx Psych/Mental Status: Mental status NL, Mood NL Nurse was there as regional director of admissions during examination Operations or Procedures Procedure - OPERATIVE REPORT Pre-op. Diagnosis: left distal ureteral calculus, 6 mm mild left hydronephrosis Post-op. Diagnosis: Same as pre-op diagnosis Operation: Extracorporeal Shockwave Lithotripsy Anesthesia: General Indications:Patient was found to have symptomatic Urolithiasis. Patient is here to undergo ESWL therapy. Informed Consent: The procedure was explained to the patient. It's risks include but not limited to infection, bleeding, and damage to the kidney. Patient fully understood and signed the consent. Other options such as watchful waiting, Ureteroscopy, Percutaneous surgery and open surgery were also discussed. Details of Procedure: Under satisfactory anesthesia, the patient was positioned on the lithotripsy table. Using fluoroscopy the stone was localized. Starting at low energy levels, shockwave treatment was commenced. The energy level was gradually increased and stone was fragmented. Once the treatment was completed, patient was then taken off the lithotripsy table and sent to recovery room in stable condition. Specimens: None Complications: None Findings: Stone Laterality: left Stone Location: distal ureteral calculus 6 mm Shocks Delivered: 2000 [employer] Power settin Fragmentation Quality: RANDALL Bell MD Feb 17, 2025 11:[address] AB PEL WO CON-NO ORAL OR IV IMPRESSION: 6mm distal left ureteral kidney stone with [id number] left hydroureteronephrosis and perinephric fat stranding. Condition at Discharge: Stable Final Diagnosis/Problems List # Left ureteral nephrolithiasis # [id number] left hydroureteronephrosis # Obstructive Uropathy # ? acute pyelonephritis # MAURA Likely due to Obstructive uropathy- improving renal function # mild B12 deficiency Discharge Disposition: Home Discharge Instruct/Medications Diet: Regular Activity: No Restrictions, As Tolerated Follow Up/Referral: fu with pcp in 1 week Medications: continue meds as prescribed Scheduled Cefpodoxime Proxetil (Cefpodoxime Proxetil), 1 TAB PO BID Tamsulosin Hcl (Flomax), 0.4 MG PO QPM Topiramate (Topiramate), 1 TAB PO BID, (Reported) Discharge Statement: "Patient was advised to return to the ER or call 911 if any headaches, dizziness, shortness of breath, chest pain, abdominal pain, bleeding, fevers, or worsening of medical condition. Patient was counseled about treatment plan, medications, possible side effects, patientverbalized understanding. All questions were answered to the best of my ability. This discharge took greater then 30 minutes in planning, reviewing documentation, counseling the patient, and discussing with other team members." ASSESSMENT ASSESSMENT Assessment Nephrolithiasis, UTI Date of Service: Feb 18, 2025 Billing Provider: AMERICA LANGLEY MD Common Visit Codes: 36977-VYP/OBS DISCH DAY >30min EVANS GARCIA RESIDENT Feb 18, 2025 16:50 AMERICA LANGLEY MD Feb 18, 2025 22:58
== END 2025-02-18 14:29 | disposition home or self-care (01) | DRG 463 ==
LOC: ER 11:03 → OVERFLOW 16:11 → EAST 23:51
PROVIDERS: ADMIT Internal Medicine
PROC: 0TF7XZZ Fragmentation in Left Ureter, External Approach (ICD-10-PCS; principal; 2025-02-17 10:37)
DX: N13.6 Pyonephrosis (principal); N17.0 Acute kidney failure with tubular necrosis; E66.9 Obesity, unspecified; Z68.39 Body mass index [BMI] 39.0-39.9, adult; E53.8 Deficiency of other specified B group vitamins; E11.9 Type 2 diabetes mellitus without complications; Z79.899 Other long term (current) drug therapy; Z87.442 Personal history of urinary calculi
CPT/HCPCS: 36415; 71045; 74176; 80048; 80053; 80307; 80320; 81001; 82306; 82607; 83036; 83735; 84443; 85025; 85610; 85730; 86850; 86900; 86901; 87086; 96372; A4344; G0378; J0461; J2250; J2704